=== PATIENT | male | born 1990 | race Caucasian/White ===

== ENCOUNTER 2024-11-08 11:05 | Inpatient (IN) | payer MEDICAID ==
[~2024-11-08] VITALS: Ht 170.2 cm; Wt 58.3 kg
[2024-11-08] MEDS ORDERED: acetaminophen 325mg tablet PO PRN (11:40)
[2024-11-08] MEDS ORDERED: magnesium hydroxide 30ml (MOM) UD suspension PO PRN (11:40)
[2024-11-08] MEDS ORDERED: traZODone 50mg tablet PO PRN (11:40)
[2024-11-08] MEDS ORDERED: loperamide 2mg capsule PO PRN (11:40)
[2024-11-08] MEDS ORDERED: mag hydrox/Alum hydrox/simeth 30ml oral suspension PO PRN (11:40)
[2024-11-08 11:43] VITALS: BP 128/88; PULSE 83; RESP 20; TEMP 98.1; O2SAT 97
[2024-11-08 12:30] VITALS: RESP 20; O2SAT 97
[2024-11-08 19:00] VITALS: RESP 15; O2SAT 98
[2024-11-08 20:00] VITALS: BP 111/48; PULSE 73; RESP 15; TEMP 97.9; O2SAT 98
[2024-11-09 07:00] VITALS: RESP 16; O2SAT 98
[2024-11-09] MEDS: acetaminophen 325mg tablet PO PRN (07:44)
[2024-11-09 07:55] LABS: CHOL/HDL RATIO 2.4 (0.00-4.99); CHOLESTEROL 127 MG/DL (0-200); HDL CHOLESTEROL 53 MG/DL (35-60); LDL CHOLESTEROL 62 MG/DL (50-100); TRIGLYCERIDES 64 MG/DL (20-135)
[2024-11-09 08:00] VITALS: BP 112/71; PULSE 61; RESP 16; TEMP 96.7; O2SAT 98
[2024-11-09] MEDS: aripiprazole 5mg tablet PO SCH (10:34)
[2024-11-09 19:00] VITALS: RESP 20; O2SAT 98
[2024-11-09 20:00] VITALS: BP 120/86; PULSE 86; RESP 20; TEMP 97; O2SAT 98
[2024-11-09] MEDS: quetiapine 100mg tablet PO SCH (20:16)
[2024-11-10 07:00] VITALS: RESP 16
[2024-11-10 12:05] VITALS: BP 138/94; PULSE 87; RESP 18; TEMP 98.4; O2SAT 96
[2024-11-10 19:30] VITALS: RESP 14; O2SAT 98
[2024-11-10 19:36] VITALS: BP 122/96; PULSE 72; RESP 14; TEMP 98; O2SAT 98
[2024-11-11 07:00] VITALS: RESP 17; O2SAT 96
[2024-11-11 08:20] VITALS: BP 122/77; PULSE 85; RESP 17; TEMP 97.7; O2SAT 96
[2024-11-11] MEDS: hydrOXYzine 25 MG tablet PO PRN (15:18)
[2024-11-11] MEDS: NICOTINE POLACRILEX 2 MG LOZENGE BC PRN (15:42)
[2024-11-11 19:51] VITALS: BP 121/69; PULSE 78; RESP 16; TEMP 97.5; O2SAT 100
[2024-11-11 20:00] VITALS: RESP 16; O2SAT 100
[2024-11-12 07:30] VITALS: BP 118/76; PULSE 77; RESP 16; TEMP 98.8; O2SAT 99
[2024-11-12 08:00] VITALS: RESP 16; O2SAT 99
[2024-11-12] MEDS: aripiprazole 5mg tablet PO SCH (08:11)
[2024-11-12 20:00] VITALS: BP 122/83; PULSE 77; RESP 16; RESP 18; TEMP 98.5; O2SAT 100; O2SAT 98
[2024-11-13 07:30] VITALS: BP 126/87; RESP 16; TEMP 98.3; O2SAT 98
[2024-11-13 08:00] VITALS: RESP 16; O2SAT 98
[2024-11-13] MEDS ORDERED: TRAZ-251 PO (09:28)
[2024-11-13] MEDS ORDERED: QUET100T34 PO (09:28)
[2024-11-13] MEDS ORDERED: ARIP5TAB53 PO (09:28)
== END 2024-11-13 12:09 | disposition home or self-care (01) | DRG 750 ==
LOC: ADULT MH 11:23 → UNDOADMIN 11:23 → ADULT MH 17:33
PROVIDERS: ADMIT Psychiatry & Neurology Psychiatry; ATTEND Psychiatry & Neurology Psychiatry
PROC: GZHZZZZ Group Psychotherapy (ICD-10-PCS; principal; 2024-11-08)
PROC: GZ51ZZZ Individual Psychotherapy, Behavioral (ICD-10-PCS; 2024-11-08)
DX: F20.9 Schizophrenia, unspecified (principal); E03.9 Hypothyroidism, unspecified; F31.9 Bipolar disorder, unspecified; Z79.899 Other long term (current) drug therapy
CPT/HCPCS: 36415; 80061; 87081; A6250; Q0177

== ENCOUNTER 2024-12-31 16:07 | Inpatient (IN) | payer MEDICAID ==
[~2024-12-31] VITALS: Ht 170.2 cm; Wt 63.4 kg
[2024-12-31 16:07] VITALS: BP 115/82; PULSE 78; RESP 16; TEMP 98.6; O2SAT 99
[~2024-12-31 16:07] MED LIST: ARIP5TAB53 PO; QUET100T34 PO; TRAZ-251 PO
[2024-12-31 17:00] VITALS: RESP 16
[2024-12-31] MEDS ORDERED: QUET-1 PO (18:41)
[2024-12-31 18:57] VITALS: RESP 18
[2024-12-31] MEDS ORDERED: diphenhydrAMINE 25mg capsule PO PRN (19:15)
[2024-12-31] MEDS ORDERED: magnesium hydroxide 30ml (MOM) UD suspension PO PRN (19:15)
[2024-12-31] MEDS ORDERED: acetaminophen 325mg tablet PO PRN ×2 (19:15)
[2024-12-31] MEDS ORDERED: loperamide 2mg capsule PO PRN (19:15)
[2024-12-31] MEDS ORDERED: mag hydrox/Alum hydrox/simeth 30ml oral suspension PO PRN (19:15)
[2024-12-31 19:34] VITALS: BP 129/84; PULSE 86; RESP 18; TEMP 97.6; O2SAT 99
[2024-12-31] MEDS: hydrOXYzine 25 MG tablet PO PRN (19:38)
[2024-12-31] MEDS: chlorproMAZINE 25mg tablet PO PRN (19:38)
[2024-12-31] MEDS: NICOTINE POLACRILEX 2 MG LOZENGE BC PRN (19:38)
[2024-12-31] MEDS: quetiapine 100mg tablet PO SCH (20:05)
[2024-12-31] MEDS: traZODone 50mg tablet PO PRN (20:48)
[2025-01-01 06:56] LABS: BASOPHILS # (AUTO) 0.1 X10'3 (0-0.2); BASOPHILS % (AUTO) 0.9 % (0-1); EOSINOPHILS # (AUTO) 0.8 X10'3 (0-0.9); EOSINOPHILS % (AUTO) 8.2 % (0-6); HEMATOCRIT 42.4 % (42.0-52.0); HEMOGLOBIN 14.3 g/dl (14.0-17.9); LYMPHOCYTES # (AUTO) 2.3 X10'3 (1.1-4.8); MEAN CORPUSCULAR HEMOGLOBIN 30.6 PG (27.0-31.0); MEAN CORPUSCULAR HGB CONC 33.6 g/dL (33.0-36.5); MEAN CORPUSCULAR VOLUME 90.9 FL (78-98); MEAN PLATELET VOLUME 8.4 FL (7.4-10.4); MONOCYTES # (AUTO) 0.7 X10'3 (0-0.9); NEUTROPHILS # (AUTO) 5.4 X10'3 (1.8-7.7); NEUTROPHILS % (AUTO) 57.9 % (42-75); PLATELET COUNT 369 X10'3 (140-440); RED BLOOD COUNT 4.67 X10'6 (4.70-6.10); RED CELL DISTRIBUTION WIDTH 13.3 % (11.5-14.5); WHITE BLOOD COUNT 9.3 X10'3 (4.5-11.0)
[2025-01-01] MEDS: nicotine 14mg patch - 24hr TD SCH (07:10)
[2025-01-01 07:27] VITALS: BP 97/60; PULSE 63; RESP 16; TEMP 98.5; O2SAT 98
[2025-01-01 07:44] LABS: ALANINE AMINOTRANSFERASE 23 U/L (12-78); ALBUMIN 3.2 G/DL (3.4-5.0); ALBUMIN/GLOBULIN RATIO 1.1 (1.1-1.5); ALKALINE PHOSPHATASE 68 IU/L (46-116); ANION GAP 8 (8-16); ASPARTATE AMINO TRANSFERASE 16 U/L (10-37); BILIRUBIN,TOTAL 0.5 MG/DL (0.1-1.0); BLOOD UREA NITROGEN 17 MG/DL (7-18); BUN/CREATININE RATIO 19.3 (10.0-20.0); CALCIUM 8.3 MG/DL (8.5-10.1); CHLORIDE 107 MMOL/L (99-107); CREATININE 0.88 MG/DL (0.60-1.10); GLUCOSE 79 MG/DL (70-104); POTASSIUM 4.2 MMOL/L (3.5-5.1); SODIUM 140 MMOL/L (135-145); TOTAL CARBON DIOXIDE 25.1 MMOL/L (24-32); TOTAL PROTEIN 6.1 G/DL (6.4-8.2); eCRCL 108 ML/MIN; eGFR > 90 ML/MIN
[2025-01-01 08:00] VITALS: RESP 16; O2SAT 98
--- NOTE | 2025-01-01 13:56 | HISTORY AND PHYSICAL ---
History & Physical Providers to CC ~ History of Present Illness Reason for Admit\Complaint: Suicidal attempt History of Present Illness History of present illness patient is a 34-year-old sleeping comfortably easily arousable states he is here because he tried to commit suicide by jumping in front of a car and if I do not be quiet and leave him alone and let him sleep he feels like killing himself again right now. Allergies: Coded Allergies: No Known Allergies (Unverified , 11/08/24) Home Medications Home Medications Active Reported Seroquel* (Quetiapine Fumarate) 100 Mg Tablet 2 Tab PO HS Past Medical History Past Medical History Past medical history patient says none Past surgical history right hand surgery Social history smokes 10 cigarettes a day denies any EtOH positive for meth abuse is single lives alone Family history both parents have diabetes Allergies are NKDA Review of systems negative for all 10 systems reviewed except he is very sleepy and he wants to be left alone Exam Vitals: Vital Signs Date Time Temp Pulse Resp B/P (MAP) Pulse Ox O2 Delivery O2 Flow Rate FiO2 01/01/25 07:27 98.5 63 16 97/60 (72) 98 Room Air General: Patient is alert and oriented x3 no acute distress lying down comfortably speaking in full sentences HEENT normocephalic nontraumatic head PERRLA. EOMI. CVS first and second heart sounds are regular rate rhythm no murmurs gallops or rubs Respiratory system is clear to auscultate bilaterally Abdomen is soft bowel sounds are positive nontender nondistended Extremities no clubbing cyanosis or edema Neurological exam patient unwilling to cooperate but is moving all four extremities without Diagnostic Data Last Recorded Lab Results: 01/01/25 0627 01/01/25 0627 Additional Plan Assessment and plan -major depression with suicidal attempt Meds per Psychiatry -I reviewed his routine labs Medicine team will continue to follow patient per protocol Date of Service: January 01, 2025 Billing Provider: SALOME GIBBONS MD Common Visit Codes: [id number] INP/OBS CARE (HIGH) SALOME GIBBONS MD January 01, 2025 13:56
--- NOTE | 2025-01-01 16:55 | HISTORY AND PHYSICAL ---
History of Present Illness History of Present Illness Patient admitted on 5150 DTS due to SDI with plan to jump of a car. This is patient 2nd admission at [facility]. He is refusing assessment, per ER chart note, pt had refused evalutions at the ED, telling the provider that: if I do not be quiet and leave him alone and let him sleep he feels like killing himself again right now Per nursing note, in the behavioral unit, Patient continued to endorse suicidal ideation with plan to overdose or cut self. Was sleeping during the shift, only waking up for snacks and meals. PT REFUSED ASSESSMENT, WANTS " TO BE LEFT ALONE" Allergies: Coded Allergies: No Known Allergies (Unverified , 11/08/24) Past Psychiatric History Psychiatric History This is patient 2nd hospitalization at [facility] Mental Status Exam OBSERVATION Appearnace: Other Speech: Other Eye Contact: Other Motor Activity: Other Affect: Other MOOD Mood: Other THOUGHTS Delusions: Other BEHAVIOR Behavior: Other Assessment/Plan Problems/Diagnosis: (1) Schizophrenia Additional Plan seroquel 200 mg q hs abilify 15 mg daily trazodone 50 hs Q 15 safety checks Total Time Spent: 20 minutes, review of chart/RN notes, hospitalists' notes, vital signs, labs, EMR, discussion and consulting with social work, staff, and the assigned nurse, review of medications, and prescribing medications and charting. Legal hold: 5150 Discharge UNSURE AT THIS TIME. PATIENT STILL ENDORSES SI AND HAVE NO VIABLE PLAN FOR FOOD, SENIOR CARE OR CLOTHING CODING VISIT-PSYCHIATRY Date of Service: January 01, 2025 Billing Provider: BARBARA VOGEL DNP Psych Common Visit Codes: [id number] INP/OBS CARE (Mod) BARBARA VOGEL DNP January 01, 2025 16:55
[2025-01-01 19:45] VITALS: RESP 16; O2SAT 97
[2025-01-01 19:54] VITALS: BP 131/80; PULSE 80; RESP 16; TEMP 97.7; O2SAT 97
[2025-01-01] MEDS ORDERED: quetiapine 100mg tablet PO SCH (21:00)
[2025-01-02] MEDS: aripiprazole 15 MG tablet PO SCH (07:09)
[2025-01-02 08:04] VITALS: BP 93/54; PULSE 60; RESP 14; TEMP 97.5; O2SAT 98
[2025-01-02 17:23] LABS: HBSAG SCREEN Negative (Negative); HEP B CORE AB, IGM Negative (Negative); HEP B CORE AB, TOT Negative (Negative)
[2025-01-02 19:00] VITALS: RESP 16; O2SAT 98
--- NOTE | 2025-01-02 19:42 | PROGRESS NOTE ---
Progress Note Dictate Providers to CC ~ Antibiotic Ordered?: No Objective Vitals Vital Signs Date Time Temp Pulse Resp B/P (MAP) Pulse Ox O2 Delivery O2 Flow Rate FiO2 01/02/25 08:04 97.5 60 14 93/54 (67) 98 Room Air Lab Results: 01/01/25 0627 01/01/25 0627 Problem\\Assessment\\Plan Problems/Diagnosis: (1) Schizophrenia Psychiatrist's Progress Note Date of Service: January 02, 2025 Notes Patient admitted on 5150 DTS due to SDI with plan to jump of a car. This is patient 2nd admission at [facility]. He is refusing assessment, per ER chart note, pt had refused evalutions at the ED, telling the provider that: if I do not be quiet and leave him alone and let him sleep he feels like killing himself again right now Per nursing note, in the behavioral unit, Patient continued to endorse suicidal ideation with plan to overdose or cut self. Was sleeping during the shift, only waking up for snacks and meals. Assessment: patient evaluated in the conference room, had refused assessment yesterday , he presents as alert, oriented to place, person and situation, calm, in no acute distress. have SI but no plan, report that he stopped taking all his meds after he was discharged from this unit. Was homeless, relapsed on drugs " I should have waited to go to a residential facility" states was hearing voices which seems to have quieten down a little today. Would like help in getting into rehab when he gets discharged. Patient is compliant with treatment, Medications were reinstated yesterday, will take a few days before any significant changes are seen, Will monitor symptoms for a few more days before making any med changes/adjustments. Mental Status Examination: Appearance: Disheveled Behavior: Cooperative Speech: Normal rate and volume Mood: Depressed Affect: Constricted Thought Process: Linear Thought Content: SI, no plan Perception: Hallucinations have decreased Cognition: Alert and oriented to person, place, and time Insight: Partial Judgment: Impaired Medication management: Seroquel 200 mg q hs abilify 15 mg daily trazodone 50 hs Safety: Continue Q 15 safety checks Total Time Spent: 50 minutes, including but not limited to assessment of the patient, review of RN notes, hospitalists' notes, vital signs, labs, EMR, discussion and consulting with social work, staff, and the assigned nurse, review of medications, and prescribing medications and charting. Legal hold: vol Discharge UNSURE AT THIS TIME. PATIENT STILL ENDORSES SI AND HAVE NO VIABLE PLAN FOR FOOD, PENITENTIARY OR CLOTHING CODING VISIT-PSYCHIATRY Date of Service: January 02, 2025 Billing Provider: BARBARA VOGEL DNP Psych Common Visit Codes: [id number] INP/OBS CARE(Mod) BARBARA VOGEL DNP January 02, 2025 19:42
[2025-01-02 20:00] VITALS: BP 131/74; PULSE 65; RESP 16; TEMP 97.3; O2SAT 98
[2025-01-03 07:30] VITALS: BP 113/78; PULSE 74; RESP 16; TEMP 97; O2SAT 98
--- NOTE | 2025-01-03 18:51 | PROGRESS NOTE- Residence ---
Progress Note - Resident Providers to CC Resident Creating Document: ANTONY MARTINEZ CC: ARACELI ROSE MD ~ Antibiotic Timeout Antibiotic Ordered?: No Subjective Patient was seen in [facility] unit today. He denies any acute medical complaints Objective Vital Signs Date Time Temp Pulse Resp B/P (MAP) Pulse Ox O2 Delivery O2 Flow Rate FiO2 01/03/25 07:30 Room Air 01/03/25 07:30 97.0 74 16 113/78 (90) 98 Result Diagram: 01/01/2562601/01/25626 General: awake, alert oriented to place, time, and person HEENT: No pallor present, no icterus, moist mucous membranes Neck: No masses and tenderness Resp: Unlabored. Lungs clear to auscultation bilaterally. Heart: Regular Rate and rhythm, normal S1 and S2 without murmur, rub or gallop Abdomen: Soft and non tender no organomegaly, no guarding and rigidity, bowel sounds present Neuro: No weakness in the upper and lower limb muscles, power of the muscles 5/5 bilateral upper and lower muscles, knee reflex present bilaterally. Cranial nerves intact Extremities: No cyanosis,clubbing or edema Skin: Warm and Dry. No lesions Psych: Cooperative with the care Plan Plan Major depression with suicidal attempt Management per Psychiatry No acute medical complaints Most recent labs reviewed Hospitalist team will continue to follow the patient Antony Gaitan MD Internal Medicine Resident PGY-1 Date of Service: January 03, 2025 Billing Provider: ARACELI ROSE MD, LEONARDO LUIS January 03, 2025 18:51
[2025-01-03 19:00] VITALS: RESP 16
[2025-01-03 20:00] VITALS: RESP 16
--- NOTE | 2025-01-03 20:16 | PROGRESS NOTE ---
Progress Note Dictate Providers to CC ~ Antibiotic Ordered?: No Objective Vitals Vital Signs Date Time Temp Pulse Resp B/P (MAP) Pulse Ox O2 Delivery O2 Flow Rate FiO2 01/03/25 07:30 Room Air 01/03/25 07:30 97.0 74 16 113/78 (90) 98 Lab Results: 01/01/25 0627 01/01/25 0627 Problem\\Assessment\\Plan Problems/Diagnosis: (1) Schizophrenia Psychiatrist's Progress Note Date of Service: January 03, 2025 Notes History of Present Illness: Patient admitted on 5149 DTS due to SDI with plan to jump infant of a car. This is patient 2nd admission at [facility]. He is refusing assessment, per ER chart note, pt had refused evaluations at the ED, telling the provider that: if I do not be quiet and leave him alone and let him sleep he feels like killing himself again right now Assessment: patient evaluated in the conference room, in no acute distress. cooperative during the interview, speech is normal in rate and volume, and he presents with a depressed mood and constricted affect. His thought process is linear, but he still have SI " I won't do it but is there" Will adjunct Lexapro 10 mg to his tx regimen to address his ongoing symptoms, continue monitoring his current medications for side effects and effectiveness. Mental Status Examination: Appearance: clean, in green scrubs Behavior: Cooperative Speech: Normal rate and volume Mood: Depressed Affect: Constricted Thought Process: Linear Thought Content: SI, no plan Perception: audio Hallucinations Cognition: Alert and oriented to person, place, and and place Insight: fair Judgment: Impaired Medication management: Adjunct Lexapro 10 mg daily Seroquel 200 mg q hs abilify 15 mg daily trazodone 50 hs Safety: Continue Q 15 safety checks Total Time Spent: 45 minutes, including but not limited to assessment of the patient, review of RN notes, hospitalists' notes, vital signs, labs, EMR, discussion and consulting with social work, staff, and the assigned nurse, review of medications, and prescribing medications and charting. Legal hold: vol Discharge UNSURE AT THIS TIME. PATIENT STILL ENDORSES SI AND HAVE NO VIABLE PLAN FOR FOOD, INTERMEDIATE OR CLOTHING CODING VISIT-PSYCHIATRY Date of Service: January 03, 2025 Billing Provider: BARBARA VOGEL DNP Psych Common Visit Codes: [id number] INP/OBS CARE(Mod) BARBARA VOGEL DNP January 03, 2025 20:16
[2025-01-04 07:00] VITALS: BP 106/68; PULSE 56; RESP 15; TEMP 97.8; O2SAT 98
--- NOTE | 2025-01-04 18:48 | PROGRESS NOTE ---
Progress Note Dictate Providers to CC ~ Central Line/PICC still needed: N\A Antibiotic Ordered?: No MRSA Education MRSA Education Provided to pt: No Objective Vitals Vital Signs Date Time Temp Pulse Resp B/P (MAP) Pulse Ox O2 Delivery O2 Flow Rate FiO2 01/04/25 07:00 97.8 56 15 106/68 (81) 98 Room Air Lab Results: 01/01/25 0627 01/01/25 06 Psychiatrist's Progress Note Date of Service: January 04, 2025 Notes History of Present Illness: Patient admitted on 5149 DTS due to SDI with plan to jump of a car. This is patient 2nd admission at [facility] [place]. He is refusing assessment, per ER chart note, pt had refused evaluations at the ED, telling the provider that: if I do not be quiet and leave him alone and let him sleep he feels like killing himself again right now Assessment: patient evaluated in the conference room. The patient presents as calm, cooperative and engaged during session. The patient endorses no worsening mental health symptoms. Denies SI. Denies HI. Denies AVH. Mental Status Examination: Appearance: clean, in green scrubs Behavior: Cooperative Speech: Normal rate and volume Mood: Depressed Affect: Constricted Thought Process: Linear Thought Content: Denies Perception: Denies Cognition: Alert and oriented to person, place, and and place Insight: fair Judgment: Poor Medication management: Adjunct Lexapro 10 mg daily Seroquel 200 mg q hs abilify 15 mg daily trazodone 50 hs Safety: Continue Q 15 safety checks Total Time Spent: 35 minutes, including but not limited to assessment of the patient, review of RN notes, hospitalists' notes, vital signs, labs, EMR, staff, and the assigned nurse, review of medications, and charting. Legal hold: vol Discharge UNSURE AT THIS TIME. CODING VISIT-PSYCHIATRY Date of Service: January 04, 2025 Billing Provider: LILIANA CARDOZA APRN Psych Common Visit Codes: [id number] INP/OBS CARE(Mod) LILIANA CARDOZA APRN January 04, 2025 18:48
[2025-01-04 19:00] VITALS: RESP 16; O2SAT 100
[2025-01-04 20:00] VITALS: BP 124/71; PULSE 74; RESP 16; TEMP 96.1; O2SAT 100
--- NOTE | 2025-01-05 06:50 | PROGRESS NOTE ---
Progress Note Dictate Providers to CC ~ Antibiotic Ordered?: No MRSA Education MRSA Education Provided to pt: No Objective Vitals Vital Signs Date Time Temp Pulse Resp B/P (MAP) Pulse Ox O2 Delivery O2 Flow Rate FiO2 01/04/25 20:00 96.1 74 16 124/71 (88) 100 Room Air Lab Results: 01/01/25 0627 01/01/25626 Psychiatrist's Progress Note Date of Service: January 05, 2025 Notes History of Present Illness: Patient admitted on 5150 DTS due to SDI with plan to jump infant of a car. This is patient 2nd admission at [facility]. He is refusing assessment, per ER chart note, pt had refused evaluations at the ED, telling the provider that: if I do not be quiet and leave him alone and let him sleep he feels like killing himself again right now Assessment: patient evaluated in the conference room. The patient was actively resting in bed with eyes open. The patient presents as calm, cooperative and engaged during session. The patient endorses no worsening mental health symptoms. Denies SI. Denies HI. Denies AVH. Mental Status Examination: Appearance: clean, in green scrubs Behavior: Cooperative Speech: Normal rate and volume Mood: Depressed Affect: Constricted Thought Process: Linear Thought Content: Denies Perception: Denies Cognition: Alert and oriented to person, place, and and place Insight: fair Judgment: Poor Medication management: Adjunct Lexapro 10 mg daily Seroquel 200 mg q hs abilify 15 mg daily trazodone 50 hs Safety: Continue Q 15 safety checks Total Time Spent: 30 minutes, including but not limited to assessment of the patient, review of RN notes, hospitalists' notes, vital signs, labs, EMR, staff, and the assigned nurse, review of medications, and charting. Legal hold: vol Discharge UNSURE AT THIS TIME. PATIENT STILL ENDORSES SI AND HAVE NO VIABLE PLAN FOR FOOD, [facility] OR CLOTHING CODING VISIT-PSYCHIATRY Date of Service: January 05, 2025 Billing Provider: LILIANA CARDOZA APRN Psych Common Visit Codes: [id number] INP/OBS CARE(Mod) LILIANA CARDOZA APRN January 05, 2025 06:50
[2025-01-05 07:00] VITALS: RESP 16
[2025-01-05] MEDS: ESCITALOPRAM 10 mg tablet 10 MG TABLET PO SCH (08:19)
[2025-01-05] MEDS ORDERED: ESCI-8 PO (13:54)
[2025-01-05] MEDS ORDERED: ARIP15TA68 PO (13:54)
[2025-01-05] MEDS ORDERED: QUET-1 PO (13:54)
--- NOTE | 2025-01-05 14:03 | DISCHARGE SUMMARY ---
Discharge Summary Providers to CC ~ Discharge Summary Admission Diagnosis: SCHIZOPHRENIA Hospital Course DATE OF ADMISSION: DATE OF DISCHARGE: Discharge Diagnosis\\Comment: SCHIZOPHRENIA Operations\\Procedures: NONE Consultants: MEDICAL TEAM Complications: NONE Condition on DC: Stable 2 or more antipsychotic used: No 2/more antipsychotic addressed: No Does Patient smoke: Yes Smoking education given.: Yes New Medications: Aripiprazole (Aripiprazole) 15 Mg Tablet 15 MG PO DAILY for 30 Days, #30 TAB Escitalopram Oxalate (Escitalopram Oxalate) 10 Mg Tablet 10 MG PO DAILY for 30 Days, #30 TAB Continued Medications: Quetiapine Fumarate* (Seroquel*) 100 Mg Tablet 2 TAB PO HS for 30 Days, #60 TAB (This prescription has been renewed) Discharge Summary: CHART REVIEW Patient admitted on 5150 DTS due to SDI with plan to jump infant of a car. This is patient 2nd admission at [facility]. He is refusing assessment, per ER chart note, pt had refused evalutions at the ED, telling the provider that: if I do not be quiet and leave him alone and let him sleep he feels like killing himself again right now Patient actively seen and examined on day of discharge 01/05/2025, by myself, LEANN Paulino. The patient is interviewed in observation room. The patient endorses "Good." Denies SI. Denies HI. Denies AVH. Toña was able to formulate a safety plan which includes going to the emergency room if symptoms return or worsen. Call [phone] or [phone] for immediate assistance if necessary. During his hospital stay, Toña receive multidisciplinary treatment he adhered to his medication regimen and has been pleasant and cooperative. She denies any suicidal ideation (SI), homicidal ideation (HI), auditory hallucination (AH), visual hallucination (VH). Staff has reported no behavioral issues, and the makayla ent has been sleeping well, adequate food intake, with no mood or behavioral changes noted. The decision to discharge Toña was made in consensus with the treatment team, including the geriatric social work professor, munitions factory worker, and broker in charge on duty. The patient was E-scribed 30 day supply of medications. MENTAL STATUS EXAM APPEARANCE: APPROPRIATELY. DRESSED IN STREET CLOTHING. SPEECH: CIRCUMSTANCE EYE CONTACT: NORMAL AFFECT: CONGRUENT WITH MOOD MOOD: "GOOD" ORIENTATION IMPAIRMENT: NONE MEMORY IMPAIRMENT: NONE ATTENTION: NORMAL HALLUCINATIONS: NONE SUICIDALITY: NONE HOMICIDALITY: NONE DELUSIONS: NONE BEHAVIOR: COOPERATIVE, PLEASANT JUDGMENT: FAIR INSIGHT: FAIR Continue Current Inpatient Psychotropic Regimen @ home Follow-Up with Psychiatric Provider Safety Plan Discussed DISCHARGE CONDITION: Her readiness for discharge is supported by his stable mental status, adherence to treatment, and proactive approach to managing his mental health. Denies SI. Denies HI. Denies AVH. The patient has been informed to continue follow-up care to ensure ongoing support and monitoring. Patient discharged homeless. *Problems/Diagnosis: (1) Schizophrenia Status: Chronic Total Time Spent on D/C: > 30 Minutes Counseling Services Smoking & Tobacco Cessation: > 10 Minutes CODING VISIT-PSYCHIATRY Date of Service: January 05, 2025 Billing Provider: LILIANA CARDOZA APRN Psych Common Visit Codes: [id number]-BCL/OBS DISCH DAY >30min LILIANA CARDOZA APRN January 05, 2025 13:57
== END 2025-01-05 16:40 | disposition home or self-care (01) | DRG 750 ==
LOC: ADULT MH 16:07 → UNDOADMIN 16:18
PROVIDERS: ADMIT Psychiatry & Neurology Psychiatry; ATTEND Psychiatry & Neurology Psychiatry
DX: F20.9 Schizophrenia, unspecified (principal); F32.A Depression, unspecified; Z60.2 Problems related to living alone; T14.91XA Suicide attempt, initial encounter; Z59.00 Homelessness unspecified; Z79.899 Other long term (current) drug therapy; Z83.3 Family history of diabetes mellitus; Z87.891 Personal history of nicotine dependence; X83.8XXA Intentional self-harm by other specified means, initial encounter; Y93.89 Activity, other specified; Y92.89 Other specified places as the place of occurrence of the external cause; Y99.8 Other external cause status
CPT/HCPCS: 36415; 80053; 85025; 86704; 86705; 87081; 87340; Q0161; Q0177

== ENCOUNTER 2025-01-10 15:52 | Emergency (ER) | payer MEDICAID ==
[~2025-01-10] VITALS: Ht 167.6 cm; Wt 64.1 kg
[~2025-01-10 15:52] MED LIST changes: +ARIP15TA68 PO; -ARIP5TAB53 PO; +ESCI-8 PO; +QUET-1 PO; -QUET100T34 PO; -TRAZ-251 PO
--- NOTE | 2025-01-10 16:07 | ELECTROCARDIOGRAPH REPORT ---
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 Teddy Garcia Measurements Intervals [place] Rate: 90 P: 74 [place]: 153 QRS: 85 QRSD: 79 T: 54 QT: 367 QTc: 449 Interpretive Statements Sinus rhythm Electronically Signed On 01-11-2025 11:00:[address] Teddy Garcia Please click the below link to view image of tracing.
[2025-01-10 16:25] LABS: BASOPHILS # (AUTO) 0.1 X10'3 (0-0.2); BASOPHILS % (AUTO) 0.7 % (0-1); EOSINOPHILS # (AUTO) 0.6 X10'3 (0-0.9); EOSINOPHILS % (AUTO) 5.9 % (0-6); HEMOGLOBIN 14.3 g/dl (14.0-17.9); LYMPHOCYTES # (AUTO) 2.4 X10'3 (1.1-4.8); LYMPHOCYTES % (AUTO) 22.5 % (21-51); MEAN CORPUSCULAR HEMOGLOBIN 30.5 PG (27.0-31.0); MEAN CORPUSCULAR VOLUME 89.6 FL (78-98); MEAN PLATELET VOLUME 7.9 FL (7.4-10.4); MONOCYTES # (AUTO) 0.7 X10'3 (0-0.9); MONOCYTES % (AUTO) 6.6 % (2-12); NEUTROPHILS # (AUTO) 6.8 X10'3 (1.8-7.7); NEUTROPHILS % (AUTO) 64.3 % (42-75); PLATELET COUNT 376 X10'3 (140-440); RED BLOOD COUNT 4.69 X10'6 (4.70-6.10); RED CELL DISTRIBUTION WIDTH 13.3 % (11.5-14.5); WHITE BLOOD COUNT 10.6 X10'3 (4.5-11.0)
[2025-01-10 16:47] VITALS: BP 128/79; PULSE 91; O2SAT 98
[2025-01-10 16:49] LABS: ALBUMIN 3.5 G/DL (3.4-5.0); ANION GAP 7 (8-16); BLOOD UREA NITROGEN 13 MG/DL (7-18); BUN/CREATININE RATIO 11.7 (10.0-20.0); CALCIUM 8.8 MG/DL (8.5-10.1); CHLORIDE 110 MMOL/L (99-107); CREATININE 1.11 MG/DL (0.60-1.10); GLUCOSE 148 MG/DL (70-104); POTASSIUM 3.3 MMOL/L (3.5-5.1); SALICYLATE 2.5 MG/DL (4.0-20.0); SODIUM 146 MMOL/L (135-145); TOTAL CARBON DIOXIDE 28.8 MMOL/L (24-32); eCRCL 85 ML/MIN; eGFR 76 ML/MIN
[2025-01-10 16:53] LABS: ACETAMINOPHEN < 2.0 UG/ML (10-30); ETHANOL < 10 MG/DL (<10)
--- NOTE | 2025-01-10 17:09 | Physician Documentation ---
History of Present Illness ~ Chief Complaint: 5150 Stated Complaint: MED CLEARANCE Time Seen by MD: 16:20 OK to notify your PCP?: Yes Source: patient Mode of Arrival: Police Exam Limitations: no limitations HPI 35 y/o male who is here BIB [employer] on a 5150 due to suicidal ideation. Patient reportedly took a 10 or more antidepressant pills that where from a friend. Patient is unable to provide me with a history due to sleeping. He is arousable but quickly falls back to sleep and will not answer my questions. Medication Reconciliation Allergies: Coded Allergies: No Known Allergies (Unverified , 11/08/24) Scheduled Aripiprazole (Aripiprazole), 15 MG PO DAILY Escitalopram Oxalate (Escitalopram Oxalate), 10 MG PO DAILY Quetiapine Fumarate* (Seroquel*), 2 TAB PO HS Past Medical History Past Medical History: No Pertinent History Past Surgical History: noncontributory Lives In: Home Review of Systems All Other Systems at this time: Reviewed and Negative Physical Exam Vital Signs: Temperature: 98.0, Source: Temporal, Heart Rate: 104, Respiratory Rate: 16, BP: 147/106, Pulse Oximetry: 100, Weight: 64.100 Oxygen Flow Rate: 0 Physical Exam General Appearance: SLEEPING, AROUSABLE BUT REQUIRES STERNAL RUB, PROTECTING AIRWAY, NORMAL RESPIRATIONS. HEENT: NCAT, PERRL, EOMI. Neck: Supple, trachea midline. Cardiovascular: RRR. No m/r/g. Lungs: CTAB. Breathing unlabored Extremities: Normal inspection. No edema. Skin: Warm/dry, normal color Neurological: DROWSY and oriented TO PERSON AND PLACE. Psychiatric: Affect congruent with mood. Progress Results/Orders Reviewed/noted all lab results: Yes Results/Orders Vital Signs 01/10/25 01/10/25 01/10/25 01/11/25 16:01 16:10 16:47 11:27 Temp 98.0 98.0 Pulse 104 91 Resp 16 10 11 13 B/P (MAP) 147/106 128/79 (95) Pulse Ox 100 98 O2 Flow Rate 0 0 Laboratory Tests Test 01/10/25 16:14 01/10/25 19:19 White Blood Count 10.6 Red Blood Count 4.69 L Hemoglobin 14.3 Hematocrit 42.0 Mean Corpuscular Volume 89.6 Mean Corpuscular Hemoglobin 30.5 Mean Corpuscular Hemoglobin Concent 34.0 Red Cell Distribution Width 13.3 Platelet Count 376 Mean Platelet Volume 7.9 Neutrophils (%) (Auto) 64.3 Lymphocytes (%) (Auto) 22.5 Monocytes (%) (Auto) 6.6 Eosinophils (%) (Auto) 5.9 Basophils (%) (Auto) 0.7 Neutrophils # (Auto) 6.8 Lymphocytes # (Auto) 2.4 Monocytes # (Auto) 0.7 Eosinophils # (Auto) 0.6 Basophils # (Auto) 0.1 CBC Comment Sodium Level 146 H Potassium Level 3.3 L Chloride Level 110 H Carbon Dioxide Level 28.8 Anion Gap 7 L Blood Urea Nitrogen 13 Creatinine 1.11 H Estimated GFR/1.73 m2 76 BUN/Creatinine Ratio 11.7 Glucose Level 148 H Calcium Level 8.8 Albumin 3.5 Thyroid Stimulating Hormone (TSH) 4.20 Chemistry Comments Salicylates Level 2.5 L Acetaminophen Level < 2.0 L Ethyl Alcohol Level < 10 Urine Specimen Description Voided Urine Color Yellow Urine Clarity Clear Urine pH 6.0 Urine Specific [place] 1.020 Urine Protein Negative Urine Glucose (UA) Negative Urine Ketones Negative Urine Occult Blood Negative Urine Nitrite Negative Urine Bilirubin Negative Urine Urobilinogen 0.2 Urine Leukocyte Esterase Negative Volume Urine Centrifuged 10 ml Urine Comment Urine Opiates Screen Positive Urine Methadone Screen Negative Urine Fentanyl Screen Negative Urine Barbiturates Screen Negative Urine Phencyclidine Screen Negative Urine Amphetamines Screen Positive Urine Benzodiazepines Screen Negative Urine Cocaine Screen Negative Urine Cannabinoids Screen Positive Drug Screen Comment Re-Evaluation Re-Evaluation : Re-Evaluation: Improved Progress Patient was seen and examined. Patient is given reassurance. The patient was seen by mental health this is recurrent polysubstance abuse problem for which the patient is not compliant with his psychiatric history and symptoms. Unfortunately patient is using many drugs needs rehab and needs to discontinue his drug binges. This was discussed with the patient by Mental Health. Medical Decision Making Differential Dx:Considerations: Include: Alcohol abuse, Anxiety, Bipolar disorder, Conversion disorder, Depression, Encephaloathy, Homicidal, Panic disorder, Personality disorder, Schizophrenia, Substance abuse, Suicidal Differential Diagnosis POISON CONTROL CONTACTED AND RECOMMENDED MONITORING FOR 6HOURS DUE TO REPORTEDLY OVERDOSING ON ZYPREXA. Departure Time of Disposition: 17:12 Disposition: 01 HOME / SELF CARE / HOMELESS Impression: Primary Impression: Polysubstance abuse Additional Impressions: Depression Qualified Codes: F32.2 - Major depressive disorder, single episode, severe without psychotic features Overdose by ingestion Suicidal intent Condition: Fair Discharge Instructions: Medical Screening Exam Additional Instructions: Follow up with mental health recommendations including drug detox programs Referrals: NO PRIMARY CARE PROVIDER (PCP) Education Educated: Patient Educated regarding: diagnosis, treatment, need for follow up Signature Scribe Signature: X Attestation: MARA DAY January 10, 2025 17:09 GREGORIO GARCIA MD January 11, 2025 13:22
[2025-01-10] MEDS ORDERED: diphenhydrAMINE 50 mg/ml inj IM ONE (17:50)
[2025-01-10] MEDS ORDERED: LORazepam 2 mg/ml vial IM ONE (17:50)
[2025-01-10 19:43] LABS: BILIRUBIN,URINE NEGATIVE (Neg); CLARITY,URINE CLEAR (Clear); COLOR,URINE YELLOW (Yellow); GLUCOSE, URINE NEGATIVE (Neg); KETONES,URINE NEGATIVE (Neg); LEUKOCYTE ESTERASE ,URINE NEGATIVE (Neg); NITRITES, URINE NEGATIVE (Neg); OCCULT BLOOD,URINE NEGATIVE (Neg); PROTEIN,URINE NEGATIVE (Neg); UROBILINOGEN,URINE 0.2 E.U/dL (0.2-1.0)
[2025-01-10 19:46] LABS: URINE AMPHETAMINE SCREEN POSITIVE (Neg); URINE BARBITUATE SCREEN NEGATIVE (Neg); URINE BENZODIAZEPINES SCREEN NEGATIVE (Neg); URINE CANNABINOID SCREEN POSITIVE (Neg); URINE COCAINE SCREEN NEGATIVE (Neg); URINE METHADONE SCREEN NEGATIVE (Neg); URINE OPIATE SCREEN POSITIVE (Neg); URINE PHENCYCLIDINE SCREEN NEGATIVE (Neg)
[2025-01-10 19:48] LABS: UA COLLECTION TYPE VOIDED
[2025-01-11 13:24] VITALS: RESP 13; TEMP 98
== END 2025-01-11 13:58 | disposition home or self-care (01) ==
LOC: ER 15:53
DX: R45.851 Suicidal ideations (principal); F32.A Depression, unspecified; F19.10 Other psychoactive substance abuse, uncomplicated; T65.91XA Toxic effect of unspecified substance, accidental (unintentional), initial encounter; Y92.89 Other specified places as the place of occurrence of the external cause
CPT/HCPCS: 36415; 80048; 80305; 80320; 80329; 81003; 84443; 85025; 93005; 99285; J7030

== ENCOUNTER 2025-03-11 19:28 | Emergency (ER) | payer MEDICAID ==
[~2025-03-11] VITALS: Ht 170.2 cm; Wt 61.5 kg
--- NOTE | 2025-03-11 19:35 | Physician Documentation ---
History of Present Illness Chief Complaint: Vomiting Stated Complaint: LOW BP/VOMITTING Time Seen by MD: 19:31 OK to notify your PCP?: Yes Source: patient, RN/MD, EMS, RN notes reviewed, EMS notes reviewed, old records Mode of Arrival: EMS Exam Limitations: no limitations HPI BED 03 This patient is a 35 y/o male BIBEMS to ED for vomiting. Per EMS, patient initially called for nausea vomiting. En route, patient's blood pressure dropped to 70/50 mmHg and heart rate was in ther 50s. Upon arrival patient's blood pressure has improved. EMS did not witness patient vomit. He states that he was vomiting yesterday and today he also started to have pain in his abdomen, presumably from his stomach ulcer. Patient denies any blood or black tarry stool. Denies any blood in his vomit or coffee ground emesis. Admitted to EMS that he had used Fentanyl earlier today, and methamphetamine the day before. Patient denies any other associated symptoms at this time. Patient denies any other alleviating or exacerbating factors. Medication Reconciliation Allergies: Coded Allergies: No Known Allergies (Unverified , 11/08/24) Scheduled Aripiprazole (Aripiprazole), 15 MG PO DAILY Escitalopram Oxalate (Escitalopram Oxalate), 10 MG PO DAILY Quetiapine Fumarate* (Seroquel*), 2 TAB PO HS Scheduled PRN ONDANSETRON ODT 4mg tablet (Ondansetron Odt), 1 TAB PO Q6H PRN PRN for nausea/vomiting ONDANSETRON ODT 4mg tablet (Ondansetron Odt), 1 TAB PO Q6H PRN PRN for nausea/vomiting Past Medical History Past Medical History: No Pertinent History Past Surgical History: noncontributory Smoking Status: Current every day smoker Alcohol Use: None Drug Use: methamphetamine, heroin Lives In: Home Review of Systems All Other Systems at this time: Reviewed and Negative Gastrointestinal: Reports: nausea, vomiting Physical Exam Vital Signs: RN Vital Signs have been reviewed: Yes, Temperature: 98.2, Source: Oral, Heart Rate: 48, Respiratory Rate: 20, BP: 137/93, Pulse Oximetry: 99, Weight: 61.500 Physical Exam General: The patient is well developed, well nourished, nontoxic appearing and is in no acute distress. Skin: [place], warm and dry with no rashes. HEENT: Head was normocephalic and atraumatic. Eyes - pupils equal, round, reactive to light and accommodation. Extraocular movements were intact. Conjunctivae were nonicteric. Ears - bilateral tympanic membranes were normal. The mouth and oropharynx were clear with moist mucous membranes. There were no pharyngeal exudates or erythema. Neck: Supple and nontender. There was no jugular venous distention, lymphadenopathy, thyromegaly or masses. Chest: Clear to auscultation bilaterally without wheezes, rales or rhonchi. No accessory muscle use. No dullness to percussion. Heart: Rate regular and rhythmic. S1, S2. No murmurs. Palpation of the chest wall was normal. No rubs or thrills. Abdomen: Soft, nontender and nondistended. Hyperactive bowel sounds. No guarding or rebound. No hepatosplenomegaly or palpable masses. Extremities: No cyanosis, clubbing or edema. The patient moves all extremities. Pulses were equal and symmetric. Neurologic: Cranial nerves II-XII were intact. Sensation was intact to light touch throughout. Motor strength was 5/5 in all four extremities. Deep tendon reflexes were intact in both upper and lower extremities. Psychologic: The patient was oriented to person, place and time. The patient demonstrated appropriate judgement and insight. Progress Results/Orders Reviewed/noted all lab results: Yes Results/Orders Orders - GREGORIO GARCIA MD Monitor (03/11/25 19:32) Saline Lock (03/11/25 19:32) Oxygen (03/11/25 19:32) Electrocardiogram (03/11/25 19:32) Urinalysis, Cult If Indicated (03/11/25 19:32) Cbc/Diff (03/11/25 19:32) Lipase (03/11/25 19:32) CMP (03/11/25 19:32) Vital Signs 03/11/25 19:30 Temp 98.2 Pulse 48 Resp 20 B/P (MAP) 137/93 Pulse Ox 99 Re-Evaluation Re-Evaluation : Re-Evaluation: Improved Progress Patient arrives code 3 ambulance for hypotension after vomiting. She was placed immediately in a room and fluid resuscitation and IV lines were established. Patient's blood pressure resolved immediately. Her hypotension seemed to be transient most likely a vasovagal reaction. As far as her chief complaint of vomiting and stomach pain patient's laboratory work there is a slight white count of 13.6 but no anemia no left shift most likely stress reaction. Chemistry was also obtained potassium slightly low at 3.1 otherwise BUN creatinine within normal limits. Magnesium within normal limits LFTs also within normal limits lipase within normal limits. Tox screen was negative for alcohol. After fluid boluses patient received Zofran also some Ativan was also given. After a final bolus patient was feeling better and ultimately discharged home and prescribed Zofran. After fluid resuscitation patient was ultimately discharged home. Continuous quality assurance monitor body interpretation shows sinus bradycardia, normal heart rate 60s, no ectopy, normal, my interpretation. Pulse oximetry monitor interpretation shows normal oxygenation at 99% room air, normal, my interpretation. EKG/XRAY/CT/US/VASC/MRI EKG : Additional Comment 1932: EDMD Dr. Garcia interpreted the EKG to show sinus bradycardia at a rate of 52bpm, good R wave progression. QTc of 448ms Medical Decision Making Additional info obtained from: old records Differential Dx:Considerations: Include: AAA, Aortic dissection, Bowel obstruction, Cholangitis, Cholelithasis, Diverticular disease, Esophagitis, Gastritis/PUD, Gastroenteritis, GI hemorrhage, Hernia, Hepatitis, Inflammatory BD, Ischemic bowel, Pancreatitis, Urinary obstruction, Urinary tract infection, Urolithiasis, Other Departure Time of Disposition: 23:18 Disposition: 01 HOME / SELF CARE / HOMELESS Impression: Primary Impression: Vomiting Qualified Codes: R11.10 - Vomiting, unspecified Additional Impressions: Dehydration Polysubstance abuse Vasovagal episode Condition: Stable Discharge Instructions: Nausea and Vomiting, Adult, Dehydration, Adult Referrals: NO PRIMARY CARE PROVIDER (PCP) Prescriptions ONDANSETRON ODT 4mg tablet (ONDANSETRON ODT) 4 Mg Tab.rapdis 1 TAB PO Q6H PRN PRN for nausea/vomiting for 4 Days, #16 TAB 0 Refills Prov: GREGORIO GARCIA MD 03/11/25 ONDANSETRON ODT 4mg tablet (ONDANSETRON ODT) 4 Mg Tab.rapdis 1 TAB PO Q6H PRN PRN for nausea/vomiting for 4 Days, #16 TAB 0 Refills Prov: GREGORIO GARCIA MD 03/11/25 Education Educated: Patient Educated regarding: diagnosis, treatment, need for follow up Signature Scribe Signature: Scribed for Gregorio Garcia MD by Cassandra Dey. 03/11/25 19:45 Attestation: The note accurately reflects work and decisions made by me.Gregorio Garcia MD 03/11/25 19:35 GREGORIO GARCIA MD Mar 11, 2025 19:35
[2025-03-11] MEDS: normal saline 1000ML IV soln IVB ONE (19:49)
[2025-03-11 20:01] LABS: MEAN PLATELET VOLUME 8.3 FL (7.4-10.4); RED CELL DISTRIBUTION WIDTH 14.1 % (11.5-14.5)
[2025-03-11 20:17] LABS: CREATININE 1.13 MG/DL (0.60-1.10); ETHANOL < 10 MG/DL (<10); TOTAL CARBON DIOXIDE 28.1 MMOL/L (24-32); eCRCL 81 ML/MIN; eGFR 75 ML/MIN
[2025-03-11] MEDS: ondansetron/PF 4mg/2ml inj IV ONE ×2 (20:17→23:24)
[2025-03-11] MEDS ORDERED: ONDA-243 PO (23:17)
[2025-03-11] MEDS: normal saline 1000ml 1,000 ML IV ONE (23:24)
[2025-03-12 00:07] VITALS: BP 107/74; PULSE 69; RESP 18; TEMP 98.2; O2SAT 99
--- NOTE | 2025-03-12 05:50 | ELECTROCARDIOGRAPH REPORT ---
[facility] Test Date: 2025-03-11 Test Time: 19:33:04 Pat Name: MOLLY BOWMAN Department: EMERGENCY ROOM Patient ID: [id number] Room: Gender: M Card Mounter: : 1990 Requested By: GREGORIO GARCIA Order Number: [id number] Reading MD: Dr. Gregorio Garcia Measurements Intervals [place] Rate: 52 P: 60 W[place]: 178 QRS: 85 QRSD: 89 T: 71 QT: 481 QTc: 448 Interpretive Statements Sinus bradycardia ST elev, probable normal early repol pattern Baseline wander in lead(s) V3 Electronically Signed On 03-12-2025 8:40:[address] Gregorio Garcia Please click the below link to view image of tracing.
== END 2025-03-12 00:09 | disposition home or self-care (01) ==
LOC: ER 19:29
DX: R55 Syncope and collapse (principal); R11.2 Nausea with vomiting, unspecified; R10.9 Unspecified abdominal pain; E86.0 Dehydration; F17.200 Nicotine dependence, unspecified, uncomplicated; F19.10 Other psychoactive substance abuse, uncomplicated; F15.90 Other stimulant use, unspecified, uncomplicated
CPT/HCPCS: 36415; 80053; 80320; 83690; 83735; 85025; 93005; 96361; 96374; 96375; 99285; J2060; J2405; J7030

== ENCOUNTER 2025-06-02 08:40 | Emergency (ER) | payer MEDICAID ==
[~2025-06-02] VITALS: Ht 170.2 cm; Wt 72.0 kg
[~2025-06-02 08:40] MED LIST changes: +ONDA-243 PO
[2025-06-02 08:42] VITALS: TEMP 97.9
--- NOTE | 2025-06-02 09:39 | Physician Documentation ---
History of Present Illness General Chief Complaint: Abdominal Pain Stated Complaint: ABD PAIN Time Seen by MD: 09:18 OK to notify your PCP?: No Source: patient, RN notes reviewed Mode of Arrival: EMS, Stretcher Exam Limitations: no limitations History of Present Illness Initial Comments 35-year-old male, with history of stomach ulcers, presents complaining of four days of upper abdominal pain. Patient reports pain is similar to prior ulcers. He has been taking a stomach medication with improvement of pain, but only has two doses left. He is requesting a refill for this and additional medications for stomach ulcers. He also has some mild nausea but denies vomiting. He den ies any bloody or black stools, or fever. Medication Reconciliation Allergies: Coded Allergies: No Known Allergies (Unverified , 06/02/25) Scheduled Aripiprazole (Aripiprazole), 15 MG PO DAILY Escitalopram Oxalate (Escitalopram Oxalate), 10 MG PO DAILY Omeprazole (Prilosec), 1 CAP PO QAM Quetiapine Fumarate* (Seroquel*), 2 TAB PO HS Scheduled PRN ONDANSETRON ODT 4mg tablet (Ondansetron Odt), 1 TAB PO Q6H PRN PRN for nausea/vomiting ONDANSETRON ODT 4mg tablet (Ondansetron Odt), 1 TAB PO Q6H PRN PRN for nausea/vomiting Sucralfate (Sucralfate), 1 GM PO TID PRN for pain Past Medical History Past Medical History: Peptic Ulcer Disease Past Surgical History: noncontributory Alcohol Use: None Drug Use: methamphetamine, heroin Lives In: Homeless Review of Systems All Other Systems at this time: Reviewed and Negative ROS As stated above in the HPI, otherwise all systems are reviewed and negative. Physical Exam Physical Exam Vital Signs: RN Vital Signs have been reviewed: Yes, Temperature: 97.9, Source: Oral, Heart Rate: 82, Respiratory Rate: 16, BP: 139/99, Pulse Oximetry: 100, Weight: 72.000 Oxygen Flow Rate: 0 Pulse Oximetry Reflects: adequate oxygenation Physical Exam VITALS: Reviewed and as above. GENERAL: Alert, no apparent distress. HEENT: Normocephalic, atraumatic, PERRL, EOMI, dry mucosa, no erythema RESPIRATORY: Lungs clear, normal breath sounds, no respiratory distress. CHEST: No accessory muscle use, no retractions CV: Regular rate, rhythm, no edema, no murmur, No: JVD GI: Epigastric tenderness. Soft, bowels sounds present, no rebound, guarding, or rigidity MUSCULOSKELETAL No deformities, no edema SKIN: Warm and dry, no rash NEURO: Oriented x4, No motor or sensory deficit PSYCH: Normal mood and affect, no agitation Progress Results/Orders Reviewed/noted all lab results: Yes Results/Orders Completed Orders - ISMAEL MUNIZ MD Ondansetron Disint. Tablet (Zofran Odt T (06/02/25 11:00) Vital Signs 06/02/25 06/02/25 06/02/25 08:42 09:48 10:32 Temp 97.9 Pulse 82 65 63 Resp 16 16 11 B/P (MAP) 139/99 129/87 (101) 143/86 (105) Pulse Ox 100 98 100 O2 Flow Rate 0 0 0 Medical Decision Making Additional information obtaine: old records (Seen in February for vomiting) Findings Patient with a epigastric pain patient has a benign exam slight epigastric tenderness patient is requesting a proton pump inhibitor the patient will be placed on omeprazole given sucralfate, patient has an otherwise benign exam the prior hospitalizations were reviewed pulse oximetry was interpreted as adequate normal the patient will be discharged. Differential Diagnosis Gastritis peptic ulcer disease ulcer Departure Time of Disposition: 10:22 Disposition: 01 HOME / SELF CARE / HOMELESS Impression: Primary Impression: Abdominal pain Qualified Codes: R10.13 - Epigastric pain Discharge Instructions: Abdominal Pain, Adult, [id number] Additional Instructions: Medications as prescribed. Follow up with your regular doctor. Return to the ER for worsening pain, vomiting blood, dark or bloody stool, or other concerns. Prescriptions Sucralfate (Sucralfate) 1 Gram Tablet 1 GM PO TID PRN for pain, #30 TABLET Prov: ISMAEL MUNIZ MD 06/02/25 Omeprazole (Prilosec) 40 Mg Capsule 1 CAP PO QAM, #30 CAP may substitute any other PPI at daily higher dosage Prov: ISMAEL MUNIZ MD 06/02/25 Signature Scribe Signature: Scribed for Ismael Muniz MD by Dwayne Fuller . 06/02/25 10:24 Attestation: The note accurately reflects work and decisions made by me.Ismael Muniz MD 06/03/25 11:26 ISMAEL MUNIZ MD Jun 02, 2025 09:39 DWAYNE PRADHAN Jun 02, 2025 10:25
[2025-06-02] MEDS ORDERED: SUCR1TAB PO (10:19)
[2025-06-02] MEDS ORDERED: OMEP40CA21 PO (10:19)
[2025-06-02 10:32] VITALS: BP 143/86; PULSE 63; RESP 11; O2SAT 100
[2025-06-02] MEDS: ondansetron 4mg rapidly disintigrating tab PO ONE (11:02)
== END 2025-06-02 10:54 | disposition home or self-care (01) ==
LOC: ER 08:41
DX: R10.13 Epigastric pain (principal)
CPT/HCPCS: 99283

== ENCOUNTER 2025-07-21 23:22 | Emergency (ER) | payer MEDICAID ==
[~2025-07-21] VITALS: Ht 170.2 cm; Wt 59.5 kg
[~2025-07-21 23:22] MED LIST changes: +SUCR1TAB PO
[2025-07-22 00:16] LABS: MEAN PLATELET VOLUME 8.0 FL (7.4-10.4); RED CELL DISTRIBUTION WIDTH 13.2 % (11.5-14.5)
[2025-07-22 00:25] LABS: CREATININE 0.97 MG/DL (0.60-1.10); TOTAL CARBON DIOXIDE 30.9 MMOL/L (24-32); eCRCL 91 ML/MIN; eGFR 89 ML/MIN
[2025-07-22] MEDS: ondansetron 4mg rapidly disintigrating tab PO ONE ×2 (02:22→02:54)
--- NOTE | 2025-07-22 02:38 | Physician Documentation ---
History of Present Illness ~ Chief Complaint: Abdominal Pain w/vomiting Stated Complaint: STOMACH DISCOMFORT A BLS Time Seen by MD: 02:36 Mode of Arrival: Ambulatory HPI Patient presents to the emergency room with chief complaint of abdominal pain. He relates this abdominal pain to previous diagnosis of ulcer. He has taken no antacids for his pain. Endorses nausea. Medication Reconciliation Allergies: Coded Allergies: No Known Allergies (Unverified , 06/02/25) Scheduled Aripiprazole (Aripiprazole), 15 MG PO DAILY Escitalopram Oxalate (Escitalopram Oxalate), 10 MG PO DAILY Quetiapine Fumarate* (Seroquel*), 2 TAB PO HS Scheduled PRN ONDANSETRON ODT 4mg tablet (Ondansetron Odt), 1 TAB PO Q6H PRN PRN for nausea/vomiting ONDANSETRON ODT 4mg tablet (Ondansetron Odt), 1 TAB PO Q6H PRN PRN for nausea/vomiting Sucralfate (Sucralfate), 1 GM PO TID PRN for pain Past Medical History Past Medical History: Peptic Ulcer Disease Past Surgical History: noncontributory Alcohol Use: None Drug Use: methamphetamine, heroin Lives In: Homeless Review of Systems ROS All review of systems negative except as per HPI Physical Exam Vital Signs: Temperature: 98.3, Source: Oral, Heart Rate: 96, Respiratory Rate: 14, BP: 121/84, Pulse Oximetry: 99, Weight: 59.550 Oxygen Flow Rate: 0 Physical Exam General: Patient is sleeping, easily arousable in no acute distress Head: Normocephalic and atraumatic. Eyes: Conjunctival normal. EOMI. PERRL. ENT: Mucous membranes moist. Neck: Supple, trachea is midline. Chest: Clear to auscultation bilaterally without rales, rhonchi, or wheezes. There is no accessory muscle use or retractions. Cardiac: RRR without murmurs, gallops, or rubs. Abd: Soft, nondistended, mild diffuse tenderness without peritonitis Progress Results/Orders Results/Orders Orders - GIGI GUERRERO MD Urinalysis, Cult If Indicated (07/21/25 23:33) Famotidine Tablet (Pepcid Tablet) (07/22/25 02:45) Pantoprazole Tablet (Protonix) (07/22/25 02:45) Ondansetron Disint. Tablet (Zofran Odt T (07/22/25 02:45) Completed Orders - GIGI GUERRERO MD Cbc/Diff (07/21/25 23:33) BMP (07/21/25 23:33) Lipase (07/21/25 23:33) CMP (07/21/25 23:33) Ondansetron Disint. Tablet (Zofran Odt T (07/22/25 02:20) Medications Received in ER Medications (Trade) Dose Ordered Sig/Constance Route PRN Reason Start Time Stop Time Status Last Admin Dose Admin (Zofran ODT tablet) 4 mg ONCE ONCE PO 07/22/25 02:20 07/22/25 02:21 DC 07/22/25 02:22 4 MG Vital Signs 07/21/25 07/22/25 07/22/25 23:23 01:46 01:49 Temp 98.3 98.3 Pulse 89 96 Resp 18 14 B/P (MAP) 133/102 121/84 (96) Pulse Ox 95 99 O2 Flow Rate 0 0 Laboratory Tests Test 07/22/25 00:02 White Blood Count 13.1 H Red Blood Count 5.13 Hemoglobin 15.9 Hematocrit 46.1 Mean Corpuscular Volume 89.9 Mean Corpuscular Hemoglobin 31.0 Mean Corpuscular Hemoglobin Concent 34.5 Red Cell Distribution Width 13.2 Platelet Count 505 H Mean Platelet Volume 8.0 Neutrophils (%) (Auto) 79.2 H Lymphocytes (%) (Auto) 12.4 L Monocytes (%) (Auto) 6.5 Eosinophils (%) (Auto) 1.4 Basophils (%) (Auto) 0.5 Neutrophils # (Auto) 10.4 H Lymphocytes # (Auto) 1.6 Monocytes # (Auto) 0.8 Eosinophils # (Auto) 0.2 Basophils # (Auto) 0.1 CBC Comment Sodium Level 139 Potassium Level 4.3 Chloride Level 100 Carbon Dioxide Level 30.9 Anion Gap 8 Blood Urea Nitrogen 12 Creatinine 0.97 Estimated GFR/1.73 m2 89 BUN/Creatinine Ratio 12.4 Glucose Level 147 H Calcium Level 9.6 Total Bilirubin 0.7 Aspartate Amino Transf (AST/SGOT) 16 Alanine Aminotransferase (ALT/SGPT) 20 Alkaline Phosphatase 101 Total Protein 8.2 Albumin 3.9 Globulin 4.3 Albumin/Globulin Ratio 0.9 L Lipase 33 Chemistry Comments Medical Decision Making Additional information obtaine: old records Findings Patient presents to the emergency room for evaluation of abdominal pain as per HPI. Differentials include but are not limited to gastritis, appendicitis, cholecystitis, diverticulitis, pancreatitis, small-bowel obstruction therefore emergent labs ordered. Labs reassuring. I feel the risk of radiation exposure outweighs any benefit at this juncture especially in the light of patient's stating that that has symptoms are from ulcer. We will treat him for ulcer with ER precautions discussed. Diff Dx GI Bleed:Consideration: Include: AE fistula, Angiodysplasia, Bleeding diathesis, Blood loss anemia, Carcinoma, Diverticulosis, Diverticulitis, Esophageal varicies, Esophagitis, Gastritis, Gastroenteritis, Inflammatory BD, Courtney-Nolasco syndrome, Meckel's diverticulum, PUD, Other Diff Dx Pain:Considerations: Include: AAA, Angina/RI, Aortic dissection, Appendicitis, Bowel obstruction, Cholangitis, Cholecystitis, Cholelithasis, Constipation, Diverticular disease, Esophageal rupture, Esophagitis, Gastritis, Gastroenteritis, GI hemorrhage, Hepatitis, Hernia, Inflammatory BD, Ischemic bowel, Mass, Pancreatitis, Porphyria, PUD, Testicular torsion, Trauma, intraabdominal, Urinary obstruction, Urinary tract infection, Urolithiasis, Other Diff Dx N/V/D:Considerations: Include: Appendicitis, Bowel obstruction, Dehydration, DKA, Diarrhea - bacterial, Diarrhea - parasitic, Diarrhea - viral, Diverticulitis, Diverticulosis, Drug toxicity, Electrolyte imbalance, Food poisoning, Gastroenteritis, GE reflux, GI bleed, Hepatitis, Hernia, Hypovolemia, Hypotension, Inflammatory BD, Impaction, Malnutrition, Pancreatitis, PUD, Renal failure, Urinary obstruction, UTI, Urolithiasis, Other Diff Dx Rectal:Considerations: Include: Fissure, Fistula, Foreign body, Impaction, Perirectal abscess, Prostatitis, Rectal prolapse, Subcutaneous abscess, Thrombosed hemorrhoid, Ulcer, UTI, Other Departure Disposition: 01 HOME / SELF CARE / HOMELESS Impression: Primary Impression: Acute gastritis Condition: Stable Discharge Instructions: Gastritis, Adult Referrals: NO PRIMARY CARE PROVIDER (PCP) Prescriptions ONDANSETRON ODT 4mg tablet (ONDANSETRON ODT) 4 Mg Tab.rapdis 1 TAB PO Q6H PRN PRN for nausea/vomiting for 4 Days, #16 TAB 0 Refills Prov: GIGI GUERRERO MD 07/22/25 Famotidine (Pepcid) 20 Mg Tablet 1 TAB PO Q12H for 30 Days, #60 TAB 0 Refills Prov: GIGI GUERRERO MD 07/22/25 Signature Scribe Signature: No scribe Attestation: The note accurately reflects work and decisions made by me.Gigi Guerrero MD 07/22/25 02:46 GIGI GUERRERO MD Jul 22, 2025 02:38
[2025-07-22] MEDS ORDERED: ONDA-243 PO (02:46)
[2025-07-22] MEDS ORDERED: FAMO-129 PO (02:46)
[2025-07-22] MEDS: pantoprazole 40mg Tablet.DR PO ONE (02:54)
[2025-07-22 05:55] VITALS: TEMP 98.3
[2025-07-22 06:13] VITALS: BP 112/83; PULSE 65; RESP 14; O2SAT 98
== END 2025-07-22 06:16 | disposition home or self-care (01) ==
LOC: ER 23:22
DX: K29.00 Acute gastritis without bleeding (principal); F15.90 Other stimulant use, unspecified, uncomplicated; F11.90 Opioid use, unspecified, uncomplicated; Z87.11 Personal history of peptic ulcer disease; Z79.899 Other long term (current) drug therapy; Z59.00 Homelessness unspecified
CPT/HCPCS: 36415; 80053; 83690; 85025; 99285

== ENCOUNTER 2025-07-29 15:55 | Emergency (ER) | payer MEDICAID ==
[~2025-07-29] VITALS: Ht 167.6 cm; Wt 60.3 kg
[~2025-07-29 15:55] MED LIST changes: +FAMO-129 PO
[2025-07-29 17:02] LABS: MEAN PLATELET VOLUME 8.3 FL (7.4-10.4); RED CELL DISTRIBUTION WIDTH 13.0 % (11.5-14.5)
[2025-07-29 17:28] LABS: CREATININE 0.99 MG/DL (0.60-1.10); TOTAL CARBON DIOXIDE 33.0 MMOL/L (24-32); eCRCL 91 ML/MIN; eGFR 87 ML/MIN
[2025-07-29] MEDS ORDERED: PANT20TA18 PO (18:39)
[2025-07-29] MEDS ORDERED: ONDA-243 PO (18:39)
--- NOTE | 2025-07-29 18:40 | Physician Documentation ---
History of Present Illness Chief Complaint: Abdominal Pain Stated Complaint: ABD PAIN Time Seen by MD: 18:14 HPI 35-year-old male presents to the emergency department for a suspected ulcer and/or gastritis. Denies NSAID use and/or alcohol intake. No hematemesis and/or melena stool. Medication Reconciliation Allergies: Coded Allergies: No Known Allergies (Unverified , 06/02/25) Scheduled Aripiprazole (Aripiprazole), 15 MG PO DAILY Escitalopram Oxalate (Escitalopram Oxalate), 10 MG PO DAILY Famotidine (Pepcid), 1 TAB PO Q12H Pantoprazole Sodium (Protonix), 1 TAB PO DAILY Quetiapine Fumarate* (Seroquel*), 2 TAB PO HS Scheduled PRN ONDANSETRON ODT 4mg tablet (Ondansetron Odt), 1 TAB PO Q6H PRN PRN for nausea/vomiting ONDANSETRON ODT 4mg tablet (Ondansetron Odt), 1 TAB PO Q6H PRN PRN for nausea/vomiting ONDANSETRON ODT 4mg tablet (Ondansetron Odt), 1 TAB PO Q6H PRN PRN for nausea/vomiting ONDANSETRON ODT 4mg tablet (Ondansetron Odt), 1 TAB PO Q6H PRN PRN for nausea/vomiting Sucralfate (Sucralfate), 1 GM PO TID PRN for pain Past Medical History Past Medical History: Peptic Ulcer Disease Past Surgical History: noncontributory Alcohol Use: None Drug Use: methamphetamine, heroin Lives In: Homeless Physical Exam Vital Signs: Temperature: 98.5, Source: Oral, Heart Rate: 87, Respiratory Rate: 16, BP: 142/88, Pulse Oximetry: 100, Weight: 60.300 Oxygen Flow Rate: 0 Progress Results/Orders Results/Orders Vital Signs 07/29/25 16:02 Temp 98.5 Pulse 87 Resp 16 B/P (MAP) 142/88 Pulse Ox 100 O2 Flow Rate 0 Laboratory Tests Test 07/29/25 16:16 White Blood Count 13.9 H Red Blood Count 5.03 Hemoglobin 15.5 Hematocrit 45.8 Mean Corpuscular Volume 91.0 Mean Corpuscular Hemoglobin 30.9 Mean Corpuscular Hemoglobin Concent 33.9 Red Cell Distribution Width 13.0 Platelet Count 506 H Mean Platelet Volume 8.3 Neutrophils (%) (Auto) 70.7 Lymphocytes (%) (Auto) 18.8 L Monocytes (%) (Auto) 6.2 Eosinophils (%) (Auto) 3.2 Basophils (%) (Auto) 1.1 H Neutrophils # (Auto) 9.8 H Lymphocytes # (Auto) 2.6 Monocytes # (Auto) 0.9 Eosinophils # (Auto) 0.4 Basophils # (Auto) 0.2 CBC Comment Sodium Level 140 Potassium Level 3.8 Chloride Level 101 Carbon Dioxide Level 33.0 H Anion Gap 6 L Blood Urea Nitrogen 32 H Creatinine 0.99 Estimated GFR/1.73 m2 87 BUN/Creatinine Ratio 32.3 H Glucose Level 87 Calcium Level 9.1 Total Bilirubin 0.6 Aspartate Amino Transf (AST/SGOT) 22 Alanine Aminotransferase (ALT/SGPT) 32 Alkaline Phosphatase 102 Total Protein 7.8 Albumin 3.9 Globulin 3.9 Albumin/Globulin Ratio 1.0 L Lipase 56 Chemistry Comments Medical Decision Making Additional information obtaine: N/A Findings Examination and patient's history is consistent with a acute gastritis without hemorrhage. Provided Maalox, Protonix and Zofran in the emergency department. Vomiting and discomfort mitigated in the emergency department. Safely discharged with PPI and instructions to avoid NSAIDs, alcohol and return for symptoms such as bloody emesis, black stool or increased pain. Patient's safely discharged in the emergency department. Differential Dx:Considerations: Cholangitis, Cholelithasis, Constipation, Esophagitis, Gastritis/PUD, Gastroenteritis, GI hemorrhage, Inflammatory BD Departure Disposition: HOME / SELF CARE / HOMELESS Impression: Primary Impression: Acute gastritis Qualified Codes: K29.00 - Acute gastritis without bleeding Condition: Improved Discharge Instructions: Gastritis, Adult Additional Instructions: Please begin medications as directed and make follow up with the primary care physician for re-evaluation and/or return to the emergency department if symptoms worsen. Thank you for visiting [facility]. Referrals: NO PRIMARY CARE PROVIDER (PCP) Prescriptions Pantoprazole Sodium (Protonix) 20 Mg Tablet. 1 TAB PO DAILY for 30 Days, #30 TAB 0 Refills Prov: ADITI WOOD PAC 07/29/25 ONDANSETRON ODT 4mg tablet (ONDANSETRON ODT) 4 Mg Tab.rapdis 1 TAB PO Q6H PRN PRN for nausea/vomiting for 4 Days, #16 TAB 0 Refills Prov: ADITI WOOD PAC 07/29/25 Education Educated: Patient Educated regarding: diagnosis, treatment, prognosis, need for follow up Signature Scribe Signature: . Attestation: . ADITI WOOD PAC Jul 29, 2025 18:40
[2025-07-29] MEDS: pantoprazole 40mg Tablet.DR PO STA (19:04)
[2025-07-29] MEDS: mag hydrox/Alum hydrox/simeth 30ml oral suspension PO ONE (19:04)
[2025-07-29] MEDS: ondansetron 4mg rapidly disintigrating tab PO ONE (19:04)
[2025-07-29 19:15] VITALS: BP 140/79; PULSE 88; RESP 18; TEMP 98.6; O2SAT 99
== END 2025-07-29 19:20 | disposition home or self-care (01) ==
LOC: ER 15:56
DX: K29.00 Acute gastritis without bleeding (principal); F15.90 Other stimulant use, unspecified, uncomplicated; F11.90 Opioid use, unspecified, uncomplicated; Z87.11 Personal history of peptic ulcer disease; Z79.899 Other long term (current) drug therapy; Z59.00 Homelessness unspecified
CPT/HCPCS: 36415; 80053; 83690; 85025; 99284; J7030

== ENCOUNTER 2025-08-04 05:52 | Emergency (ER) | payer MEDICAID ==
[~2025-08-04] VITALS: Ht 175.3 cm; Wt 79.5 kg
[~2025-08-04 05:52] MED LIST changes: +PANT20TA18 PO
[2025-08-04 06:16] VITALS: BP 132/88; PULSE 87; RESP 18; TEMP 98.2; O2SAT 99
[2025-08-04 06:57] LABS: RED CELL DISTRIBUTION WIDTH 13.3 % (11.5-14.5)
[2025-08-04 06:58] LABS: MEAN PLATELET VOLUME 8.0 FL (7.4-10.4)
[2025-08-04 07:09] LABS: CREATININE 1.22 MG/DL (0.60-1.10); TOTAL CARBON DIOXIDE 24.5 MMOL/L (24-32); eCRCL 86 ML/MIN; eGFR 68 ML/MIN
== END 2025-08-04 09:07 | disposition left against medical advice (07) ==
LOC: ER 05:53
DX: K62.5 Hemorrhage of anus and rectum (principal); R10.9 Unspecified abdominal pain
CPT/HCPCS: 36415; 80053; 83690; 85025; 99281; 99282

== ENCOUNTER 2025-08-07 19:57 | Emergency (ER) | payer MEDICAID ==
[~2025-08-07] VITALS: Ht 170.2 cm; Wt 59.9 kg
[2025-08-07 20:55] LABS: MEAN PLATELET VOLUME 8.6 FL (7.4-10.4); RED CELL DISTRIBUTION WIDTH 13.2 % (11.5-14.5)
--- NOTE | 2025-08-07 21:03 | Physician Documentation ---
History of Present Illness Chief Complaint: Abdominal Pain Stated Complaint: ABD PAIN Time Seen by MD: 20:43 Mode of Arrival: EMS HPI 35-year-old male presents to the ED with a complaint of a gastritis. States that he woke up with burning in his esophagus and upper chest. The does take medication for ongoing gastritis and GERD. Requesting a GI cocktail to alleviate his symptoms Medication Reconciliation Allergies: Coded Allergies: No Known Allergies (Unverified , 08/04/25) Scheduled Aripiprazole (Aripiprazole), 15 MG PO DAILY Escitalopram Oxalate (Escitalopram Oxalate), 10 MG PO DAILY Famotidine (Pepcid), 1 TAB PO Q12H Pantoprazole Sodium (Protonix), 1 TAB PO DAILY Quetiapine Fumarate* (Seroquel*), 2 TAB PO HS Sucralfate (Carafate), 1 TAB PO Q6H Scheduled PRN ONDANSETRON ODT 4mg tablet (Ondansetron Odt), 1 TAB PO Q6H PRN PRN for nausea/vomiting ONDANSETRON ODT 4mg tablet (Ondansetron Odt), 1 TAB PO Q6H PRN PRN for nausea/vomiting ONDANSETRON ODT 4mg tablet (Ondansetron Odt), 1 TAB PO Q6H PRN PRN for na usea/vomiting ONDANSETRON ODT 4mg tablet (Ondansetron Odt), 1 TAB PO Q6H PRN PRN for nausea/vomiting Sucralfate (Sucralfate), 1 GM PO TID PRN for pain Past Medical History Past Medical History: Peptic Ulcer Disease Past Surgical History: noncontributory Alcohol Use: None Drug Use: methamphetamine, heroin Lives In: Homeless Review of Systems All Other Systems at this time: Reviewed and Negative Physical Exam Vital Signs: Temperature: 98.0, Heart Rate: 69, Respiratory Rate: 19, BP: 111/71, Pulse Oximetry: 99, Weight: 59.900 Oxygen Flow Rate: 0 Physical Exam General: Alert, no apparent distress. HEENT: PERRL, EOMI, no injection, moist mucous membranes. Respiratory: Lungs clear, no respiratory distress. Cardiovascular: Regular rate and rhythm, no murmurs. Extremities: Normal range of motion, no deformity. Neurologic: Oriented x4. Psychiatric: Normal mood and affect. Skin: Normal color, warm and dry. No edema, no ecchymosis. Progress Results/Orders Results/Orders Orders - GONZALO JIMENEZ NP Lidocaine 2% Viscous (Xylocaine 2% Visco (08/07/25 20:55) Completed Orders - GONZALO JIMENEZ NP Mag & Alum Hydrox/Simeth Susp (Maalox Or (08/07/25 20:55) Vital Signs 08/07/25 19:58 Temp 98.0 Pulse 69 Resp 19 B/P (MAP) 111/71 Pulse Ox 99 O2 Flow Rate 0 Laboratory Tests Test 08/07/25 20:02 08/07/25 20:16 Urine Comment White Blood Count 11.8 H Red Blood Count 4.66 L Hemoglobin 14.0 Hematocrit 42.1 Mean Corpuscular Volume 90.3 Mean Corpuscular Hemoglobin 30.0 Mean Corpuscular Hemoglobin Concent 33.2 Red Cell Distribution Width 13.2 Platelet Count 444 H Mean Platelet Volume 8.6 Neutrophils (%) (Auto) 67.0 Lymphocytes (%) (Auto) 24.1 Monocytes (%) (Auto) 5.3 Eosinophils (%) (Auto) 2.7 Basophils (%) (Auto) 0.9 Neutrophils # (Auto) 7.9 H Lymphocytes # (Auto) 2.8 Monocytes # (Auto) 0.6 Eosinophils # (Auto) 0.3 Basophils # (Auto) 0.1 CBC Comment Chemistry Comments Medical Decision Making Additional information obtaine: old records Findings The patient for a gastritis secondary to a reported ulcer. He reports improved symptoms Differential Dx:Considerations: Gastritis/PUD, Gastroenteritis, GI hemorrhage Departure Disposition: HOME / SELF CARE / HOMELESS Impression: Primary Impression: Acute gastritis Condition: Stable Discharge Instructions: Gastritis, Adult Referrals: NO PRIMARY CARE PROVIDER (PCP) Prescriptions Sucralfate (Carafate) 1 Gram Tablet 1 TAB PO Q6H for 30 Days, #120 TAB 0 Refills Prov: GONZALO JIMENEZ NP 08/07/25 Signature Scribe Signature: f Attestation: Scribed for Gonzalo Jimenez House Superintendent by Gonzalo Jimenez - CARLOS . 08/07/25 22:51 GONZALO JIMENEZ NP Aug 07, 2025 21:03
[2025-08-07 21:04] LABS: LEUKOCYTE ESTERASE ,URINE NEGATIVE (Neg); NITRITES, URINE NEGATIVE (Neg); OCCULT BLOOD,URINE NEGATIVE (Neg)
[2025-08-07 21:07] LABS: UA COLLECTION TYPE NON-SPECIFIED
[2025-08-07 21:08] LABS: CREATININE 0.96 MG/DL (0.60-1.10); TOTAL CARBON DIOXIDE 28.4 MMOL/L (24-32); eCRCL 93 ML/MIN; eGFR 90 ML/MIN
[2025-08-07] MEDS: mag hydrox/Alum hydrox/simeth 30ml oral suspension PO ONE (21:28)
[2025-08-07] MEDS: LIDOcaine 2% Viscous 15ml cup MM PRN (21:28)
[2025-08-07] MEDS ORDERED: SUCR1TAB34 PO (22:06)
[2025-08-07 22:25] VITALS: BP 110/70; PULSE 70; RESP 18; TEMP 98.6; O2SAT 99
== END 2025-08-07 22:26 | disposition home or self-care (01) ==
LOC: ER 19:58
DX: K29.00 Acute gastritis without bleeding (principal); K21.9 Gastro-esophageal reflux disease without esophagitis; F15.90 Other stimulant use, unspecified, uncomplicated; F11.90 Opioid use, unspecified, uncomplicated; Z87.11 Personal history of peptic ulcer disease; Z79.899 Other long term (current) drug therapy; Z59.00 Homelessness unspecified
CPT/HCPCS: 36415; 80053; 81003; 83690; 85025; 99283